=== PATIENT | female | born 1995 | race African-American/Black ===

== ENCOUNTER 2016-11-03 17:37 | Emergency (ER) | payer OTHER ==
[2016-11-03 17:41] LABS: URINE SOURCE CLEAN CATCH
[2016-11-03 17:56] LABS: URINE APPEARANCE CLOUDY; URINE BILIRUBIN NEG (NEG); URINE BLOOD NEG (NEG); URINE COLOR DK YELLOW; URINE GLUCOSE NEG (NEG); URINE KETONE TRACE (NEG); URINE LEUKOCYTE ESTERASE NEG (NEG); URINE NITRATE NEG (NEG); URINE PROTEIN TRACE (NEG); URINE SPECIFIC GRAVITY 1.035 (1.003-1.035)
[2016-11-03 18:08] LABS: CULTURE INDICATED? NO
[2016-11-03 18:09] LABS: INFLUENZA A POS (NEG); INFLUENZA B NEG (NEG)
== END 2016-11-03 18:40 | disposition home or self-care (01) ==
LOC: CED 17:37
PROVIDERS: Nurse Practitioner
DX: J10.1 Influenza due to other identified influenza virus with other respiratory manifestations (principal); I10 Essential (primary) hypertension
CPT/HCPCS: 81003; 84703; 87804; 99283

== ENCOUNTER 2016-12-30 19:56 | Emergency (ER) | payer OTHER | END 2016-12-30 22:44 | disposition left against medical advice (07) | LOC: CED 19:56 → CFTX 22:42 | DX: Z53.21 Procedure and treatment not carried out due to patient leaving prior to being seen by health care provider (principal) ==

== ENCOUNTER 2016-12-30 22:46 | Emergency (ER) | payer OTHER | END 2016-12-31 01:10 | disposition left against medical advice (07) | LOC: CED 22:46 → CFTX 23:59 → CED 12-31 01:10 | DX: Z53.21 Procedure and treatment not carried out due to patient leaving prior to being seen by health care provider (principal) ==

== ENCOUNTER 2016-12-31 11:07 | Emergency (ER) | payer OTHER ==
[2016-12-31 12:51] LABS: URINE SOURCE CLEAN CATCH
[2016-12-31 12:57] LABS: URINE APPEARANCE CLEAR; URINE BILIRUBIN NEG (NEG); URINE BLOOD NEG (NEG); URINE COLOR YELLOW; URINE GLUCOSE NEG (NEG); URINE KETONE NEG (NEG); URINE LEUKOCYTE ESTERASE NEG (NEG); URINE NITRATE NEG (NEG); URINE PROTEIN NEG (NEG); URINE SPECIFIC GRAVITY 1.018 (1.003-1.035)
[2016-12-31 13:00] LABS: CULTURE INDICATED? NO
[2017-01-04 02:22] LABS: CHLAMYDIA TRACH Not Detected (Not Detected); N GONOR Not Detected (Not Detected)
== END 2016-12-31 14:32 | disposition home or self-care (01) ==
LOC: CFTX 11:07 → CED 11:07 → CFTX 12:31
PROVIDERS: Nurse Practitioner
DX: J02.0 Streptococcal pharyngitis (principal); N76.0 Acute vaginitis; I10 Essential (primary) hypertension; F17.200 Nicotine dependence, unspecified, uncomplicated; Z90.49 Acquired absence of other specified parts of digestive tract
CPT/HCPCS: 81003; 84703; 87491; 87591; 87808; 87880; 87905; 96372; 99284; J0561

== ENCOUNTER 2017-01-30 22:39 | Emergency (ER) | payer OTHER ==
[2017-01-31 01:48] LABS: URINE SOURCE CLEAN CATCH
[2017-01-31 01:53] LABS: URINE APPEARANCE CLEAR; URINE BILIRUBIN NEG (NEG); URINE BLOOD NEG (NEG); URINE COLOR YELLOW; URINE GLUCOSE NEG (NEG); URINE KETONE NEG (NEG); URINE LEUKOCYTE ESTERASE NEG (NEG); URINE NITRATE NEG (NEG); URINE PH 6.5 (5-8); URINE PROTEIN NEG (NEG)
[2017-01-31 01:54] LABS: CULTURE INDICATED? NO
== END 2017-01-31 02:30 | disposition home or self-care (01) ==
LOC: CFTX 22:39 → CED 22:39 → CFTX 23:59
PROVIDERS: Nurse Practitioner
DX: N76.0 Acute vaginitis (principal); F17.200 Nicotine dependence, unspecified, uncomplicated
CPT/HCPCS: 81003; 99283

== ENCOUNTER 2017-02-28 00:38 | Emergency (ER) | payer OTHER ==
[2017-02-28 02:56] LABS: URINE SOURCE CLEAN CATCH
[2017-02-28 03:24] LABS: URINE APPEARANCE CLEAR; URINE BILIRUBIN NEG (NEG); URINE BLOOD NEG (NEG); URINE COLOR YELLOW; URINE GLUCOSE NEG (NEG); URINE KETONE TRACE (NEG); URINE LEUKOCYTE ESTERASE NEG (NEG); URINE NITRATE NEG (NEG); URINE PH 5.5 (5-8); URINE PROTEIN NEG (NEG); URINE SPECIFIC GRAVITY 1.028 (1.003-1.035)
[2017-02-28 03:32] LABS: CULTURE INDICATED? NO
[2017-03-02 00:14] LABS: CHLAMYDIA TRACH Not Detected (Not Detected); N GONOR Not Detected (Not Detected)
== END 2017-02-28 04:35 | disposition home or self-care (01) ==
LOC: CED 00:38
PROVIDERS: Emergency Medicine
DX: O23.591 Infection of other part of genital tract in pregnancy, first trimester (principal); O22.41 Hemorrhoids in pregnancy, first trimester; Z3A.01 Less than 8 weeks gestation of pregnancy; Z90.49 Acquired absence of other specified parts of digestive tract
CPT/HCPCS: 81003; 84703; 87491; 87591; 87808; 87905; 99283